=== PATIENT | female | born 1980 | race African-American/Black ===

== ENCOUNTER 2019-10-20 08:27 | Outpatient (RCR) | payer OTHER, SELFPAY | END 2019-10-20 23:59 | disposition home or self-care (01) | LOC: ANHAUDIO 08:27 | DX: Z46.1 Encounter for fitting and adjustment of hearing aid (principal) | CPT/HCPCS: 99199 ==

== ENCOUNTER 2020-10-07 14:10 | Outpatient (RCR) | payer OTHER, SELFPAY | END 2021-01-05 23:59 | disposition home or self-care (01) | LOC: ANHBWCAUD 14:10 | DX: Z46.1 Encounter for fitting and adjustment of hearing aid (principal) | CPT/HCPCS: V5014 ==

== ENCOUNTER 2021-08-22 11:45 | Outpatient (RCR) | payer OTHER, SELFPAY | END 2021-11-20 23:59 | disposition home or self-care (01) | LOC: ANHBWCAUD 11:45 | PROVIDERS: Visit Provider Otolaryngology | DX: Z46.1 Encounter for fitting and adjustment of hearing aid (principal) | CPT/HCPCS: 99199; V5014 ==

== ENCOUNTER 2021-09-20 14:27 | Outpatient (CLI) | payer OTHER, SELFPAY | END 2021-09-20 14:28 | disposition home or self-care (01) | LOC: ANHBWCAUD 14:36 | PROVIDERS: PCP Otolaryngology; Visit Provider Otolaryngology | DX: H69.93 Unspecified Eustachian tube disorder, bilateral (principal); H90.71 Mixed conductive and sensorineural hearing loss, unilateral, right ear, with unrestricted hearing on the contralateral side; H90.42 Sensorineural hearing loss, unilateral, left ear, with unrestricted hearing on the contralateral side | CPT/HCPCS: 92557; 92567 ==

== ENCOUNTER 2022-04-10 11:30 | Outpatient (RCR) | payer OTHER, SELFPAY | END 2022-06-14 23:59 | disposition home or self-care (01) | LOC: ANHBWCAUD 11:30 | PROVIDERS: PCP Otolaryngology; Visit Provider Otolaryngology | DX: Z46.1 Encounter for fitting and adjustment of hearing aid (principal) | CPT/HCPCS: 99199; V5014 ==

== ENCOUNTER 2023-09-18 07:56 | Outpatient (RCR) | payer MEDICAID, SELFPAY | END 2023-12-17 23:59 | disposition home or self-care (01) | LOC: ANHBWCAUD 07:56 | PROVIDERS: PCP Otolaryngology | DX: Z46.1 Encounter for fitting and adjustment of hearing aid (principal) | CPT/HCPCS: 99199; V5014 ==

== ENCOUNTER 2025-02-17 07:51 | Outpatient (CLI) | payer BC, SELFPAY | END 2025-02-17 07:52 | disposition home or self-care (01) | PROVIDERS: PCP Otolaryngology; Visit Provider Otolaryngology | DX: H90.42 Sensorineural hearing loss, unilateral, left ear, with unrestricted hearing on the contralateral side (principal); H90.71 Mixed conductive and sensorineural hearing loss, unilateral, right ear, with unrestricted hearing on the contralateral side | CPT/HCPCS: 92557; 92567 ==